=== PATIENT | male | born 1990 | race Caucasian/White ===

== ENCOUNTER 2019-11-23 21:35 | Emergency (ER) | payer OTHER, BC ==
[~2019-11-23] VITALS: Ht 144.8 cm; Wt 49.9 kg
[2019-11-23 21:51] VITALS: BP 134/59
[2019-11-23 22:54] VITALS: BP 134/59
== END 2019-11-24 00:53 | disposition home or self-care (01) ==
LOC: MED 21:35
DX: K94.23 Gastrostomy malfunction (principal); Z98.890 Other specified postprocedural states; Z88.8 Allergy status to other drugs, medicaments and biological substances
CPT/HCPCS: 43760; 43762; 99284

== ENCOUNTER 2020-11-06 16:32 | Emergency (ER) | payer OTHER, BC ==
[~2020-11-06] VITALS: Ht 149.9 cm; Wt 47.6 kg
[2020-11-06 16:53] VITALS: BP 122/92
--- NOTE | 2020-11-06 17:32 | NUR ---
Patient transferred to bed 2 via wheelchair by tech. RN evaluating the patient at bedside.
--- NOTE | 2020-11-06 17:50 | NUR ---
29/m with caregiver for G-Tube replacement. Per parent - tube has been leaking for the last day. Dr Guy at bedside for replacement. Successful replacement of a 20F G-tube. Aspiration of gastric content and flushes without difficulty.
[2020-11-06 18:49] VITALS: BP 122/92
--- NOTE | 2020-11-06 18:49 | NUR ---
Patient discharged with v/s stable. Written and verbal after care instructions given and explained. Patient verbalized understanding. Wheel Chair Assisted with by parent. All questions addressed prior to discharge. Advised to follow up with PMD.
== END 2020-11-06 18:49 | disposition home or self-care (01) ==
LOC: MED 16:32
DX: K94.23 Gastrostomy malfunction (principal); Z98.890 Other specified postprocedural states; Y83.3 Surgical operation with formation of external stoma as the cause of abnormal reaction of the patient, or of later complication, without mention of misadventure at the time of the procedure
CPT/HCPCS: 43760; 43762; 99284

== ENCOUNTER 2022-11-23 09:02 | Inpatient (IN) | payer OTHER, BC ==
[~2022-11-23] VITALS: Ht 137.2 cm; Wt 47.6 kg
[2022-11-23 09:10] VITALS: BP 153/95; PULSE 97; RESP 20; TEMP 98; O2SAT 97
--- NOTE | 2022-11-23 09:15 | NUR ---
MD assessing pt at bedside. Family at bedside. call light within reach
--- NOTE | 2022-11-23 11:00 | NUR ---
admitted patient from [facility] emergency room rn in 123A aox1 admitting diagnosis of gastric tube malfunction .
[2022-11-23 12:01] LABS: BASOPHILS % (AUTO) 0.6 % (0.0-2.0); EOSINOPHILS # (AUTO) 0.4 K/uL (0-0.4); EOSINOPHILS % (AUTO) 6.8 % (0.0-4.0); HEMATOCRIT 46.9 % (36-52); HEMOGLOBIN 15.9 g/dL (12.0-18.0); LYMPHOCYTES # (AUTO) 1.6 K/uL (2.0-11.5); LYMPHOCYTES % (AUTO) 27.9 % (20.5-51.1); MEAN CORPUSCULAR HEMOGLOBIN 31 pg (27-31); MEAN CORPUSCULAR HGB CONC 34 g/dL (33-37); MEAN CORPUSCULAR VOLUME 91.5 fL (80-94); MONOCYTES # (AUTO) 0.5 K/uL (0.8-1.0); MONOCYTES % (AUTO) 8.1 % (1.7-9.3); NEUTROPHILS # (AUTO) 3.3 K/uL (1.8-7.7); NEUTROPHILS % (AUTO) 56.6 % (42.2-75.2); PLATELET COUNT (AUTO) 242 K/uL (140-450); RED BLOOD CELL COUNT(AUTO) 5.12 MIL/uL (4.20-6.10); RED CELL DISTRIBUTION WIDTH 12.3 % (11.6-13.7); WHITE BLOOD COUNT (AUTO) 5.8 K/uL (4.8-10.8)
[2022-11-23 12:27] LABS: ALBUMIN 3.6 g/dL (3.4-5.0); ANION GAP 11.1 (8-16); CARBON DIOXIDE 32.1 mmol/L (21-32); CREATININE 0.7 mg/dL (0.6-1.3); POTASSIUM 4.2 mmol/L (3.5-5.1); TOTAL BILIRUBIN 0.2 mg/dL (0.0-1.0)
--- NOTE | 2022-11-23 12:29 | NUR ---
Patient will be admitted to care of DR CASTANEDA. Admited to MED SURG. Will go to room 106B Belongings list completed. Report to LACY MARTIN
[2022-11-23] MEDS ORDERED: DEXT 5% /NACL 0.9% 1,000 ML IV SCH (13:15)
[2022-11-23] MEDS ORDERED: guaiFENesin DM 200/20 MG-10 ML 10 ML UDC PO PRN (13:15)
[2022-11-23] MEDS ORDERED: HYDROcodone/APAP 7.5/325 MG 1 TAB GT PRN (13:15)
[2022-11-23] MEDS ORDERED: ONDANSETRON 4 MG/2 ML VIAL IM/IVP PRN (13:15)
[2022-11-23] MEDS ORDERED: ZOLPIDEM 5 MG TAB PO PRN (13:15)
[2022-11-23] MEDS ORDERED: POTASSIUM CHLORIDE 20% 40 MEQ/15 ML UDC PO PRN (13:25)
[2022-11-23] MEDS ORDERED: DOCUSATE 100 MG/10 ML UDC PO PRN (13:25)
[2022-11-23] MEDS ORDERED: ACETAMINOPHEN 650 MG/20.3 ML UDC PO PRN (13:25)
[2022-11-23 13:53] LABS: PROTHROMBIN TIME 10.4 secs (10.8-13.4)
[2022-11-23 14:43] LABS: CHOL/HDL RATIO 3.4 (1-4.5); FREE T4 (FREE THYROXINE) 1.01 ng/dL (0.76-1.46); PHOSPHORUS 3.4 mg/dL (2.5-4.9); THYROID STIMULATING HORMONE 1.34 uIU/mL (0.34-3.74)
--- NOTE | 2022-11-23 15:30 | NUR ---
jennie harmanuse iv . aware .
--- NOTE | 2022-11-23 15:37 | NUR ---
PATIENT HAS BEEN SCREENED AND CATEGORIZED HIGH NUTRITION RISK. PATIENT WILL BE SEEN WITHIN 1-2 DAYS OF ADMISSION. 11/24/22-11/25/[address]
--- NOTE | 2022-11-23 15:45 | NUR ---
family refuse to place the patinet on restraints . Md aware . will be seen gastro intestinal Md
[2022-11-23 16:00] VITALS: BP 125/66; PULSE 68; RESP 20; TEMP 97.1; O2SAT 99
[2022-11-23 16:06] VITALS: PULSE 68; RESP 20; O2SAT 99
--- NOTE | 2022-11-23 16:40 | NUR ---
patient refuse MRSA swab . aware
--- NOTE | 2022-11-23 19:51 | NUR ---
will endorse to system dispatcher rn for continuity of care . for gastro intestinal consult with Md Blanco for gastric tube malfunction
--- NOTE | 2022-11-23 19:52 | NUR ---
RECEIVED PT FROM MORNING SHIFT NURSE. PT IS AOX1, APHASIC AND BED BOUND. PT IS ON ROOM AIR AND NPO. PT HAS G-TUBE AND NO IV DR. CASTANEDA IS AWARE. PT SKIN IS INTACT. NO S/S OF RESPIRATORY DISTRESS NOTED. ALL SAFETY MEASURES IMPLEMENTED. BED IN LOW POSITION AND BED WHEELS ON LOCK.
[2022-11-23 20:00] VITALS: BP 139/91; PULSE 88; RESP 18; TEMP 97.4; O2SAT 95
--- NOTE | 2022-11-23 20:00 | NUR ---
PARENT OF THE PT ARRIVED. THEY LEFT DIAPER FOR PT'S USE. FATHER DECIDED NOT TO STAY IN THE HOSPITAL AND CONTACT NUMBER WAS GIVEN.
--- NOTE | 2022-11-23 22:00 | NUR ---
DR. RUGGIERO CONSULTED THE PT AND PARENTS WAS ON BEDSIDE. DOCTOR ORDER FOR EGD WITH PICC PLACEMENT FOR THE PT. CONSENT WAS SIGNED.
--- NOTE | 2022-11-24 | NUR ---
REMINDED THE PT TO SLEEP. PT JUST SMILE. NO S/S OF RESPIRATORY DISTRESS NOTED. ALL SAFETY MEASURES IMPLEMENTED. BED IN LOW POSITION AND BED WHEELS ON LOCK.
--- NOTE | 2022-11-24 02:00 | NUR ---
COVID SWAB TEST WAS REFUSED BY THE PT. CHARGED NURSE MADE AWARE OF IT.
--- NOTE | 2022-11-24 04:00 | NUR ---
MORNING CARE WAS DONE TO PT. CHANGED DIAPER PARENT PREPARED, LINENS AND BLANKET. NO S/S OF RESPIRATORY DISTRESS NOTED. ALL SAFETY MEASURES IMPLEMENTED, BED IN LOW POSITION, BED WHEELS ON LOCK AND CALL LIGHT WITHIN REACH.
--- NOTE | 2022-11-24 04:45 | NUR ---
PT KEEPS PLAYING CALL LIGHT. TRY TO EXPLAIN TO PATIENT NOT TO PLAY WITH IT. STILL, HE KEEPS ON HITTING IT. NO S/S OF RESPIRATORY DISTRESS NOTED. ALL SAFETY MEASURES IMPLEMENTED, BED IN LOW POSITION, BED WHEELS ON LOCK AND CALL LIGHT WITHIN REACH.
--- NOTE | 2022-11-24 05:07 | NUR ---
PASSING PATIENT ROOM CALL LIGHT ON AN UNANSWERED, PATIENT IS DEVELOPMENTALLY DISABLED, AND CONTINUES TO HIT CALL LIGHT, MULTI SPINDLE OPERATOR AWARE. CANCELLED CALL LIGHT TWO TIMES.
--- NOTE | 2022-11-24 05:39 | NUR ---
SCHEDULED PREVACID WAS NOT GIVEN TO PT DUE TO G-TUBE MALFUNCTION. ALL SAFETY MEASURES IMPLEMENTED, BED IN LOW POSITION, BED WHEELS ON LOCK AND CALL LIGHT WITHIN REACH.
[2022-11-24] MEDS ORDERED: LANSOPRAZOLE 30 MG CAPDR GT SCH (06:30)
--- NOTE | 2022-11-24 07:02 | NUR ---
receive the patient from the night supervisor rn in rm 106A aox4 with admitting diagnosis of acute appendicitis . for antibiotics , pain mgt . probable discharge today
--- NOTE | 2022-11-24 07:02 | NUR ---
receive the patient from the occupational therapist home based rn in 123A aox1 mentally delayed admitting diagnosis of gastric tube malfunction. gastro enterologist will see the patient today
--- NOTE | 2022-11-24 07:26 | NUR ---
PT IS STABLE. ENDORSED PT TO MORNING SHIFT FOR CONTINUITY OF CARE.
--- NOTE | 2022-11-24 07:28 | NUR ---
receive the patient from the shift production associate rn in rm 125A aox4 admitting diagnosis of uncontrolled diabetes . will continue to monitor Addendum: 11/24/22 at 1350 by EMIR COBB RN wrong patient
[2022-11-24 07:37] VITALS: PULSE 85; RESP 20; O2SAT 99
[2022-11-24 08:13] LABS: T4 (THYROXINE) 8.4 ug/dL (4.5-12.0)
--- NOTE | 2022-11-24 09:40 | NUR ---
the mother singed consent for anesthesia for the gastric tube procedure to be done by Md Santana . patient was brought to operating room for procedure .
[2022-11-24] MEDS ORDERED: SEVOFLURANE 250 ML BTL INH ONE (10:05)
[2022-11-24] MEDS ORDERED: ONDANSETRON 4 MG/2 ML VIAL ONE (10:05)
[2022-11-24] MEDS ORDERED: PROPOFOL 200 MG/20 ML VIAL IV ONE (10:05)
[2022-11-24] MEDS ORDERED: SULFAMETH/TRIMETH SUSP 200/40MG-5ML UDBTL GT SCH (10:30)
--- NOTE | 2022-11-24 11:25 | NUR ---
discontinue the iv , id band . made discharge patient teaching . discharge to the [facility] thru a wheelchair to a waiting private car with friend to home in a stable condition
[2022-11-24] MEDS ORDERED: NACL 0.9% 1,000 ML IV SCH (11:30)
[2022-11-24] MEDS ORDERED: diphenhydrAMINE 50 MG/ML VIAL IVP PRN (11:30)
--- NOTE | 2022-11-24 13:45 | NUR ---
patient came back from the procedure the gastro enterologist would like to have surgery consult . still on NPO . made patient teaching with the family . Primary Md made aware . will have surgery consult
--- NOTE | 2022-11-24 13:46 | NUR ---
PT. WITH LOW CRISTIAN SCALE AT MODERATE TO HIGH RISK, CONTINUE TO FOLLOW PRESSURE INJURY PREVENTION INTERVENTIONS. -POSITIONING: TURN AND REPOSITION PATIENT Q 2H OR SOONER USE PILLOWS TO KEEP BONY PROMINENCES FROM DIRECT CONTACT WITH SURFACES USE REPOSITIONING WEDGES TO PROVIDE 30-DEGREE ANGLE FOR SIDE LYING POSITIONS OFFLOADING OR FOAM DRESSING TO ALL TUBING TO PREVENT MEDICAL DEVICES RELATED PRESSURE INJURY -RE-EVALUATING AND MANAGING INCONTINENCE MONITOR SKIN CONDITION DURING POSITION CHANGE DO NOT MASSAGE REDNESS, BONY PROMINENCES FREQUENT ELLIS-CARE AND PROVIDE BARRIER CREAMS PRN IF SOILING MOISTURE CONTROL BY OFFER BED BOWMAN/URINAL /ABSORBENT PAD TO WICK AND HOLD MOISTURE KEEP SKIN DRY AND PROTECT FROM FRICTION -MANAGE FRICTION/SHEAR/MOBILITY KEEP HOB AT THE LOWEST LEVEL OF ELEVATION NO MORE THAN 30 DEGREE UNLESS OTHERWISE CONTRAINDICATED USE LIFT SHEET OR TRANSFER DEVICE TO MOVE PATIENT AND PREVENT LATERAL SHEER. PROTECT HEELS, ELBOWS BONY PROMINENCES WITH SKIN BERRIES OR FOAM DRESSING IF EXPOSED TO FRICTION OFFLOAD BILATERAL HEELS BY PLACING PILLOWS UNDER CALVES AT ALL TIMES, UNLESS OTHERWISE CONTRAINDICATED -PRESSURE REDISTRIBUTION SURFACE THERAPY LAMAR ISOFLEX MATTRESS -NUTRITION: PLEASE FOLLOW RD RECOMMENDATIONS AND OFFER NUTRITION SUPPLEMENTS IF ORDERED. PLEASE CONTACT WOUND CARE NURSE FOR ANY QUESTION AND CHANGE OF WOUND CONDITION
--- NOTE | 2022-11-24 15:33 | NUR ---
PARENTS OF PATIENT ASKING REGARDING WHY PATIENT IS STILL NPO, EGD W/ PEG IS NOT DONE AND ACCORDING TO GI,NEEDS A SURGICAL CONSULT, EXPLAINED TO THEM THAT WE'RE WAITING FOR SURGEON. PAGED DR. GIBSON AND SPOKE TO HIM TO START D5 1/2 NS @ 75. I SPOKE TO THE DAD AND THEY DECIDED TO TRANSFER TO [place], EXPLAINED TO THEM THAT IT'S NOT GOING TO HAPPEN RIGHT NOW WE NEED TO PROCESS BUT I WILL TELL OFFICE TECHNOLOGIST. THEY DECIDED TO SIGN AMA INSTEAD.
--- NOTE | 2022-11-24 15:34 | NUR ---
Md hawley will see and talk with the father as soon as he come. but the father decided to leave against medical advice . the father said he will like to bring the patient to [facility] .
--- NOTE | 2022-11-24 15:44 | NUR ---
the father signed the form for leaving against medical advice . Md hawley made aware
== END 2022-11-24 15:53 | disposition left against medical advice (07) | DRG 395 ==
LOC: MED 09:02 → MTU 11:20
PROVIDERS: ADMIT Family Medicine; ATTEND Family Medicine
PROC: 0DH68UZ Insertion of Feeding Device into Stomach, Via Natural or Artificial Opening Endoscopic (ICD-10-PCS; 2022-11-24)
PROC: 0DP08UZ Removal of Feeding Device from Upper Intestinal Tract, Via Natural or Artificial Opening Endoscopic (ICD-10-PCS; principal; 2022-11-24 13:30)
DX: K94.23 Gastrostomy malfunction (principal); Y83.3 Surgical operation with formation of external stoma as the cause of abnormal reaction of the patient, or of later complication, without mention of misadventure at the time of the procedure; G80.9 Cerebral palsy, unspecified; E78.5 Hyperlipidemia, unspecified; Z53.29 Procedure and treatment not carried out because of patient's decision for other reasons; Y92.89 Other specified places as the place of occurrence of the external cause; Z88.8 Allergy status to other drugs, medicaments and biological substances
CPT/HCPCS: 36415; 80053; 82150; 82374; 83036; 83690; 83735; 83880; 84100; 84436; 84439; 84443; 84479; 85025; 85610; 85730; 93005; 99285; J2405; J2704